=== PATIENT | female | born 1960 | race Caucasian/White ===

== ENCOUNTER 2017-09-10 15:44 | Inpatient (IN) | payer MEDICAID ==
[~2017-09-10] VITALS: Ht 162.6 cm; Wt 71.0 kg
--- NOTE | ~2017-09-10 | OP ---
PATIENT NAME: SAVANNA CALIX MEDICAL RECORD: [id number] :56 LOCATION:D.[facility] ADMISSION DATE:09/10/17 SURGEON: LEATHA LYONS MD DATE OF OPERATION: 09/17/2017 PREOPERATIVE DIAGNOSIS: Gangrenous nonviable, right foot. POSTOPERATIVE DIAGNOSES: Gangrenous nonviable, right foot plus abscess of the entire posterior compartment with necrosis of deep gastroc. PROCEDURES: 1. Open right BKA. 2. Excisional debridement of posterior compartment to include skin, subcutaneous tissue, portions of fat, fascia, and muscle, 60 cm in total. 3. Application of wound VAC. SURGEON: Leatha Lyons MD ANESTHESIA: General. INTRAOPERATIVE COMPLICATIONS: None. SUMMARY OF PATHOLOGIC FINDINGS: As listed in the preoperative diagnosis, the patient had a known pyogenic gangrenous right foot and she had become more septic and the decision was made to proceed with a below-knee amputation. Unfortunately at the time of the below-knee amputation, it was found that the entire posterior compartment was also filled with pus, requiring the above surgery. OPERATIVE SUMMARY IN DETAIL: After obtaining the appropriate preoperative orthopedic surgery consent as well as anesthetic consultation, evaluation and clearance, the patient was brought to the operating room and placed in a supine position. After general laryngeal mask was administered, tourniquet was placed about the proximal aspect of the right lower extremity. Right lower extremity was then prepped and draped in a routine sterile fashion leaving the entire portion of the foot below the malleoli completely covered. The leg was elevated. Tourniquet was inflated to 350 mmHg, it was not exsanguinated. Planned incision was made. Dissection was carried down to the anterior aspect of the periosteum of the tibia and also down to the fibula. The flaps posteriorly was made with little degree of difficulty and upon incising into the posterior compartment to the transverse interosseous ligament, copious purulence began to exude forth and cultures were taken at this time. Amputation was completed. An examination was made at the infection track to behind the knee to the insertion of the gastrocsoleus-nemius complex. Copious pulsatile lavage irrigation was then carried out along with a scalpel, curettage, and rongeur debridement. When it was felt that all nonviable tissue was cleared, Bovie was taken and checked the superficial flap of the gastroc, which still viable, although it had a grayish hue. At this point, a wound VAC one of the black sponge was placed up the canal of the gastroc that had completely dissolved and another one was placed across the face of the BKA. This was sewn in with 0 Prolene. Wound VAC was then attached to 125 mmHg with continuous suction at a medium intensity. The patient was awakened, taken to recovery room in stable condition. All final needle and sponge counts were correct. TRANSINT:[id number] Voice Confirmation ID: [id number] DOCUMENT ID: [id number] OPERATIVE REPORT [id number] SAVANNA CALIX MD, LEATHA MCDONOUGH at 0826 CC: [id number] DICTATION DATE: 09/19/17 1052 DE ICER: 09/19/17 1413 ADM IN [facility] [address] [place] [address]
--- NOTE | ~2017-09-10 | OP ---
PATIENT NAME: SAVANNA CALIX MEDICAL RECORD: [id number] :56 LOCATION:D.[facility] ADMISSION DATE:09/10/17 SURGEON: LEATHA LYONS MD DATE OF OPERATION: 09/13/2017 PREOPERATIVE DIAGNOSIS: Osteomyelitis of the right foot and ankle. POSTOPERATIVE DIAGNOSIS: Osteomyelitis of the right foot and ankle. PROCEDURES: Excisional debridement of the right foot to include skin, subcutaneous tissue, portions of fat, fascia, muscle and bone, 80 cm in total. SURGEON: Leatha Lyons MD. ANESTHESIA: General. INTRAOPERATIVE COMPLICATIONS: None. SUMMARY OF PATHOLOGIC FINDINGS: Unfortunately, the patient had asked to try to save her lower extremity at the time of the surgery; however, she was found to have a very large plantar abscess with tracts going more proximally. BKA was not done at this point; however, the bulk of the infection was debrided. OPERATIVE SUMMARY IN DETAIL: After obtaining the appropriate preoperative orthopedic surgery consult as well as anesthetic consultation, evaluation and clearance, the patient was brought to the operating room and placed on the operating table in supine position. After adequate general laryngeal mask airway was administered, tourniquet was placed on the proximal aspect of the right lower extremity. Note, it was not used during this case. Right lower extremity was prepped and draped in a routine sterile fashion. A combination of scalpel curettage as well as rongeur debridement was utilized along the border of what appeared to be the area of osteomyelitic concern; however, upon incising around this area ,a large plantar abscess was noted that tracked to the calcaneus and into the calcaneus. This required further curettage and removal of more of the calcaneus. At this point, copious bulb syringe was then followed by packing of this wound and sterile dressings were applied. The patient was awakened and taken to recovery room in stable condition. Plan is to immediately postoperatively talk to the patient and the family when she is awake about the need for BKA. TRANSINT:[id number] Voice Confirmation ID: [id number] DOCUMENT ID: [id number] LEATHA LYONS MD at 0444 CC: [id number] DICTATION DATE: 11/19/17 1042 GLOST KILN PLACER: 11/19/17 1253 DIS IN 09/29/17 [facility] [address] [place] [address]
--- NOTE | ~2017-09-10 | OP ---
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 PROCEDURE: Repeat excisional debridement of infected BKA stump with wound VAC application. SURGEON: Leatha Lyons MD ANESTHESIA: General. INTRAOPERATIVE COMPLICATIONS: None. SUMMARY OF PATHOLOGIC FINDINGS: The patient was indeed found to have improvement of the infected cavity posterior to her knee and in the entire deep posterior compartment. OPERATIVE SUMMARY IN DETAIL: After obtaining the appropriate preoperative orthopedic surgery consent as well as anesthetic consultation, evaluation, and clearance, the patient was brought to the operating room and placed on the operating table in supine position. After general laryngeal mask was administered, the patient's right BKA stump was prepped and draped in a routine sterile fashion. The previously sewn in wound VAC was removed and pulsatile lavage irrigation was followed by rongeur, scalpel and curettage debridement of all nonviable-appearing tissue. One small residual area of abscess was discovered at this time, it was also completely debrided. Please note that in aggregate this was approximately 80 square cm. After appropriate excisional debridement and irrigation had been finished, wound VAC was replaced and sewn in as prior. The wound VAC was placed at 125 mmHg with continuous suction on medium intensity. The patient was awakened and taken to recovery room in stable condition. All final needle, instrument and sponge counts were correct. TRANSINT:[id number] Voice Confirmation ID: [id number] DOCUMENT ID: [id number] LEATHA LYONS MD at 0826 CC: [id number] DICTATION DATE: 09/19/17 1122 PC ANALYST: 09/19/17 1618 ADM IN [facility] [id number] [place] [address]
--- NOTE | ~2017-09-10 | OP ---
PATIENT NAME: SAVANNA CALIX MEDICAL RECORD: [id number] :56 LOCATION:D.[facility] ADMISSION DATE:09/10/17 SURGEON: LEATHA LYONS MD DATE OF OPERATION: 09/25/2017 PREOPERATIVE DIAGNOSIS: Infected below the knee amputation. POSTOPERATIVE DIAGNOSIS: Infected below the knee amputation. PROCEDURE: I&D of below-knee amputation with terminal closure. SURGEON: Leatha Lyons MD ANESTHESIA: General. INTRAOPERATIVE COMPLICATIONS: None. SUMMARY OF PATHOLOGIC FINDINGS: The wound today looked as good it ever has without evidence of continued infection and viable tissue while it is still not as optimal for BKA. It is hopefully going to heal, so that she can have a better chance in ambulation. OPERATIVE SUMMARY IN DETAIL: After obtaining the appropriate preoperative orthopedic surgery consent as well as anesthetic consultation, evaluation and clearance, the patient was brought to the operating room and placed on the operating table in supine position. After general laryngeal mask was administered, the patient's right lower extremity was prepped and draped in routine sterile fashion. Previously placed wound VAC sponge and deep was removed. All sutures were removed and copious pulsatile lavage irrigation was carried out along with a curettage, rongeur, and scalpel, debridement of any nonviable-appearing tissue, which was very little. The posterior flap was closed, the anterior flap using #1 Vicryl followed by 2-0 Vicryl and skin jeffy. Sterile dressings were applied. The patient was awakened, taken to recovery room in stable condition. All final needle and sponge counts were correct. TRANSINT:[id number] Voice Confirmation ID: [id number] DOCUMENT ID: [id number] LEATHA LYONS MD at 1026 CC: [id number] DICTATION DATE: 09/25/17 1051 SUPERVISOR MODEL MAKING: 09/25/17 1105 ADM IN [facility] [id number] [place] [address]
[2017-09-10] MEDS ORDERED: TRIGLIDE160 MG PO (16:36)
[2017-09-10] MEDS ORDERED: LEVEMIR100 U/M1 SC (16:36)
[2017-09-10] MEDS ORDERED: ENULOSE10 G/15 ML PO (16:37)
[2017-09-10] MEDS ORDERED: MIRALAX17 GM PO (16:38)
[2017-09-10] MEDS ORDERED: ALEVE220 MG PO (16:38)
[2017-09-10 18:18] LABS: HEMATOCRIT 30.1 % (36.0-48.0); HEMOGLOBIN 10.3 g/dL (12-16); MCH 29.3 pg (26.0-34.0); MCHC 34.2 g/dL (31.0-37.0); MCV 85.5 fL (80.0-100.0); PLATELET COUNT 493 10x3/uL (130-400); RBC 3.52 10x6/uL (4.00-5.40); RDW 12.3 % (11.5-14.5); WBC 42.1 10x3/uL (4.8-10.8)
[2017-09-10 18:33] LABS: ALBUMIN 1.4 g/dL (3.4-5.0); ALKALINE PHOSPHATASE 362 U/L (46-116); ALT (SGPT) 15 U/L (10-68); BILIRUBIN - TOTAL 0.24 mg/dL (0.2-1.3); CALC OSMOLALITY 271 mosm/kg (275-300); CALCIUM 8.9 mg/dL (8.5-10.1); CARBON DIOXIDE 27.7 mmol/L (21.0-32.0); CHLORIDE - SERUM 99 mmol/L (98-107); CREATININE - SERUM 0.6 mg/dL (0.6-1.3); GLUCOSE 190 mg/dL (74-106); MAGNESIUM - SERUM 1.2 mg/dL (1.8-2.4); PHOSPHOROUS 2.6 mg/dL (2.5-4.9); POTASSIUM - SERUM 3.8 mmol/L (3.5-5.1); PROTEIN - SERUM 5.5 g/dL (6.4-8.2); SODIUM 134 mmol/L (136-145); UREA NITROGEN 11 mg/dL (7-18); eGFR NON AFRICAN AMERICAN > 90 mL/min (90-120)
[2017-09-10 19:01] LABS: EOSINOPHILS 1 % (0-7); LYMPHOCYTES 11 % (15-50); MONOCYTES 2 % (2-11); NEUTROPHILS 86 % (40-80); PLATELET ESTIMATE NORMAL
[2017-09-11 00:14] VITALS: BP 141/70; BP 148/72
[2017-09-11 05:31] LABS: BASOPHILS 0.1 % (0-2); EOSINOPHILS 0.1 % (0-7); HEMATOCRIT 28.8 % (36.0-48.0); HEMOGLOBIN 9.6 g/dL (12-16); IMMATURE GRANULOCYTES 1.1 % (0-5); LYMPHOCYTES 7.5 % (15-50); MCH 28.6 pg (26.0-34.0); MCHC 33.3 g/dL (31.0-37.0); MCV 85.7 fL (80.0-100.0); MEAN PLATELET VOLUME 9.2 fL (7.4-10.4); MONOCYTES 6.7 % (2-11); NEUTROPHILS 84.5 % (40-80); PLATELET COUNT 507 10x3/uL (130-400); RBC 3.36 10x6/uL (4.00-5.40); RDW 12.3 % (11.5-14.5); WBC 38.2 10x3/uL (4.8-10.8)
[2017-09-11 05:32] LABS: ALBUMIN 1.2 g/dL (3.4-5.0); ALKALINE PHOSPHATASE 309 U/L (46-116); ALT (SGPT) 12 U/L (10-68); CALC OSMOLALITY 270 mosm/kg (275-300); CALCIUM 8.5 mg/dL (8.5-10.1); CARBON DIOXIDE 26.5 mmol/L (21.0-32.0); CHLORIDE - SERUM 100 mmol/L (98-107); CREATININE - SERUM 0.6 mg/dL (0.6-1.3); GLUCOSE 212 mg/dL (74-106); MAGNESIUM - SERUM 1.3 mg/dL (1.8-2.4); PHOSPHOROUS 2.8 mg/dL (2.5-4.9); POTASSIUM - SERUM 3.6 mmol/L (3.5-5.1); PROTEIN - SERUM 5.9 g/dL (6.4-8.2); SODIUM 133 mmol/L (136-145); UREA NITROGEN 11 mg/dL (7-18); eGFR NON AFRICAN AMERICAN > 90 mL/min (90-120)
[2017-09-11 06:33] VITALS: BP 116/56
[2017-09-11 08:54] VITALS: BP 146/52
[2017-09-11 15:36] VITALS: BMI 21.8
[2017-09-11 16:00] VITALS: BP 142/68
[2017-09-11 22:10] VITALS: BP 137/67
[2017-09-12 01:01] VITALS: BP 146/65
[2017-09-12 05:39] VITALS: BP 144/63
[2017-09-12 06:16] LABS: BASOPHILS 0.1 % (0-2); EOSINOPHILS 0.2 % (0-7); HEMATOCRIT 30.4 % (36.0-48.0); HEMOGLOBIN 10.2 g/dL (12-16); IMMATURE GRANULOCYTES 1.5 % (0-5); LYMPHOCYTES 8.3 % (15-50); MCHC 33.6 g/dL (31.0-37.0); MCV 86.4 fL (80.0-100.0); MEAN PLATELET VOLUME 9.1 fL (7.4-10.4); MONOCYTES 7.1 % (2-11); NEUTROPHILS 82.8 % (40-80); PLATELET COUNT 572 10x3/uL (130-400); RBC 3.52 10x6/uL (4.00-5.40); RDW 12.5 % (11.5-14.5); WBC 36.4 10x3/uL (4.8-10.8)
[2017-09-12 06:33] LABS: ALBUMIN 1.2 g/dL (3.4-5.0); ALKALINE PHOSPHATASE 347 U/L (46-116); ALT (SGPT) 11 U/L (10-68); CALC OSMOLALITY 273 mosm/kg (275-300); CALCIUM 9.2 mg/dL (8.5-10.1); CARBON DIOXIDE 27.1 mmol/L (21.0-32.0); CHLORIDE - SERUM 101 mmol/L (98-107); CREATININE - SERUM 0.6 mg/dL (0.6-1.3); GLUCOSE 155 mg/dL (74-106); POTASSIUM - SERUM 3.4 mmol/L (3.5-5.1); PROTEIN - SERUM 6.2 g/dL (6.4-8.2); SODIUM 136 mmol/L (136-145); UREA NITROGEN 9 mg/dL (7-18); eGFR NON AFRICAN AMERICAN > 90 mL/min (90-120)
[2017-09-12 10:00] VITALS: BP 142/63
[2017-09-12 11:48] VITALS: BP 136/64
[2017-09-12 16:01] VITALS: BP 125/62
[2017-09-12 21:55] VITALS: BP 106/66
[2017-09-13 00:40] VITALS: BP 144/72
[2017-09-13 04:50] VITALS: BP 147/60
[2017-09-13 05:02] LABS: BASOPHILS 0.1 % (0-2); EOSINOPHILS 0.3 % (0-7); HEMATOCRIT 30.8 % (36.0-48.0); HEMOGLOBIN 10.1 g/dL (12-16); IMMATURE GRANULOCYTES 1.7 % (0-5); LYMPHOCYTES 7.9 % (15-50); MCH 28.4 pg (26.0-34.0); MCHC 32.8 g/dL (31.0-37.0); MCV 86.5 fL (80.0-100.0); MEAN PLATELET VOLUME 8.9 fL (7.4-10.4); PLATELET COUNT 619 10x3/uL (130-400); RBC 3.56 10x6/uL (4.00-5.40); RDW 12.4 % (11.5-14.5); WBC 33.8 10x3/uL (4.8-10.8)
[2017-09-13 05:17] LABS: ALBUMIN 1.2 g/dL (3.4-5.0); ALKALINE PHOSPHATASE 328 U/L (46-116); ALT (SGPT) 12 U/L (10-68); BILIRUBIN - TOTAL 0.47 mg/dL (0.2-1.3); CALC OSMOLALITY 270 mosm/kg (275-300); CALCIUM 9.3 mg/dL (8.5-10.1); CARBON DIOXIDE 27.7 mmol/L (21.0-32.0); CHLORIDE - SERUM 100 mmol/L (98-107); CREATININE - SERUM 0.7 mg/dL (0.6-1.3); GLUCOSE 135 mg/dL (74-106); POTASSIUM - SERUM 4.2 mmol/L (3.5-5.1); PROTEIN - SERUM 6.4 g/dL (6.4-8.2); SODIUM 135 mmol/L (136-145); UREA NITROGEN 9 mg/dL (7-18); eGFR NON AFRICAN AMERICAN > 90 mL/min (90-120)
[2017-09-13 08:14] VITALS: BP 156/66
[2017-09-13 11:22] VITALS: BP 150/75
[2017-09-13 17:38] VITALS: BP 135/66
[2017-09-13 20:00] VITALS: BP 135/57
[2017-09-14 04:00] VITALS: BP 128/62
[2017-09-14 05:31] LABS: BASOPHILS 0.1 % (0-2); EOSINOPHILS 0.2 % (0-7); HEMATOCRIT 29.9 % (36.0-48.0); HEMOGLOBIN 9.9 g/dL (12-16); IMMATURE GRANULOCYTES 1.4 % (0-5); LYMPHOCYTES 5.8 % (15-50); MCH 28.6 pg (26.0-34.0); MCHC 33.1 g/dL (31.0-37.0); MCV 86.4 fL (80.0-100.0); MEAN PLATELET VOLUME 8.8 fL (7.4-10.4); MONOCYTES 6.3 % (2-11); NEUTROPHILS 86.2 % (40-80); PLATELET COUNT 680 10x3/uL (130-400); RBC 3.46 10x6/uL (4.00-5.40); RDW 12.5 % (11.5-14.5); WBC 38.8 10x3/uL (4.8-10.8)
[2017-09-14 05:47] LABS: ALBUMIN 1.3 g/dL (3.4-5.0); ALKALINE PHOSPHATASE 266 U/L (46-116); ALT (SGPT) 10 U/L (10-68); CALC OSMOLALITY 270 mosm/kg (275-300); CALCIUM 8.9 mg/dL (8.5-10.1); CARBON DIOXIDE 29.1 mmol/L (21.0-32.0); CHLORIDE - SERUM 98 mmol/L (98-107); CREATININE - SERUM 0.7 mg/dL (0.6-1.3); GLUCOSE 133 mg/dL (74-106); PROTEIN - SERUM 6.4 g/dL (6.4-8.2); SODIUM 135 mmol/L (136-145); UREA NITROGEN 9 mg/dL (7-18); eGFR NON AFRICAN AMERICAN > 90 mL/min (90-120)
[2017-09-14 08:15] VITALS: BP 141/64
[2017-09-14 11:59] VITALS: BP 147/78
[2017-09-14 14:51] VITALS: Ht 162.6 cm; Wt 71.0 kg
[2017-09-14 15:48] VITALS: BP 148/66
[2017-09-14 20:00] VITALS: BP 140/59
[2017-09-15 04:00] VITALS: BP 136/78
[2017-09-15 04:46] LABS: BASOPHILS 0.1 % (0-2); EOSINOPHILS 0.2 % (0-7); HEMATOCRIT 27.6 % (36.0-48.0); HEMOGLOBIN 9.2 g/dL (12-16); IMMATURE GRANULOCYTES 1.1 % (0-5); LYMPHOCYTES 6.2 % (15-50); MCH 28.4 pg (26.0-34.0); MCHC 33.3 g/dL (31.0-37.0); MCV 85.2 fL (80.0-100.0); MEAN PLATELET VOLUME 8.7 fL (7.4-10.4); MONOCYTES 6.4 % (2-11); PLATELET COUNT 666 10x3/uL (130-400); RBC 3.24 10x6/uL (4.00-5.40); RDW 12.5 % (11.5-14.5); WBC 39.2 10x3/uL (4.8-10.8)
[2017-09-15 04:56] LABS: ALBUMIN 1.1 g/dL (3.4-5.0); ALKALINE PHOSPHATASE 214 U/L (46-116); ALT (SGPT) 9 U/L (10-68); CALC OSMOLALITY 274 mosm/kg (275-300); CALCIUM 8.4 mg/dL (8.5-10.1); CARBON DIOXIDE 29.4 mmol/L (21.0-32.0); CHLORIDE - SERUM 100 mmol/L (98-107); CREATININE - SERUM 0.6 mg/dL (0.6-1.3); GLUCOSE 168 mg/dL (74-106); POTASSIUM - SERUM 3.5 mmol/L (3.5-5.1); SODIUM 136 mmol/L (136-145); UREA NITROGEN 10 mg/dL (7-18); eGFR NON AFRICAN AMERICAN > 90 mL/min (90-120)
[2017-09-15 08:02] VITALS: BP 151/58
[2017-09-15 12:50] VITALS: BP 108/76
[2017-09-15 16:17] VITALS: BP 118/42
[2017-09-15 20:00] VITALS: BP 150/61
[2017-09-16] VITALS: BP 143/59
[2017-09-16 04:00] VITALS: BP 163/70
[2017-09-16 06:07] LABS: BASOPHILS 0.1 % (0-2); EOSINOPHILS 0.2 % (0-7); HEMATOCRIT 29.3 % (36.0-48.0); HEMOGLOBIN 9.8 g/dL (12-16); IMMATURE GRANULOCYTES 1.2 % (0-5); MCH 28.5 pg (26.0-34.0); MCHC 33.4 g/dL (31.0-37.0); MCV 85.2 fL (80.0-100.0); MEAN PLATELET VOLUME 8.6 fL (7.4-10.4); MONOCYTES 4.4 % (2-11); NEUTROPHILS 88.1 % (40-80); PLATELET COUNT 692 10x3/uL (130-400); RBC 3.44 10x6/uL (4.00-5.40); RDW 12.7 % (11.5-14.5); WBC 41.4 10x3/uL (4.8-10.8)
[2017-09-16 06:28] LABS: ALBUMIN 1.2 g/dL (3.4-5.0); ALKALINE PHOSPHATASE 228 U/L (46-116); ALT (SGPT) 12 U/L (10-68); BILIRUBIN - TOTAL 0.31 mg/dL (0.2-1.3); CALC OSMOLALITY 272 mosm/kg (275-300); CALCIUM 8.6 mg/dL (8.5-10.1); CARBON DIOXIDE 28.5 mmol/L (21.0-32.0); CHLORIDE - SERUM 99 mmol/L (98-107); CREATININE - SERUM 0.7 mg/dL (0.6-1.3); GLUCOSE 249 mg/dL (74-106); POTASSIUM - SERUM 3.3 mmol/L (3.5-5.1); PROTEIN - SERUM 6.5 g/dL (6.4-8.2); SODIUM 133 mmol/L (136-145); UREA NITROGEN 10 mg/dL (7-18); eGFR NON AFRICAN AMERICAN > 90 mL/min (90-120)
[2017-09-16 07:58] VITALS: BP 136/64
[2017-09-16 12:23] VITALS: BP 154/68
[2017-09-16 15:55] VITALS: BP 147/66
[2017-09-16 20:00] VITALS: BP 136/58
[2017-09-17] VITALS (13 sets, daily range): BP systolic 111–184; BP diastolic 57–87
[2017-09-17 03:50] LABS: CREATININE - URINE 39.6 mg/dL (30-125); PROTEIN - URINE 85.5 mg/dL (0.0-11.9)
[2017-09-18] VITALS: BP 146/82
[2017-09-18 04:00] VITALS: BP 146/69
[2017-09-18 08:07] VITALS: BP 158/75
[2017-09-18 12:15] VITALS: BP 148/69
[2017-09-18 16:24] VITALS: BP 145/69
[2017-09-18 20:00] VITALS: BP 156/71
[2017-09-19] VITALS (14 sets, daily range): BP systolic 122–164; BP diastolic 56–86
[2017-09-19 06:26] LABS: BASOPHILS 0 % (0-2); EOSINOPHILS 1.1 % (0-7); HEMATOCRIT 26.5 % (36.0-48.0); HEMOGLOBIN 8.6 g/dL (12-16); IMMATURE GRANULOCYTES 1.2 % (0-5); LYMPHOCYTES 12.8 % (15-50); MCH 27.7 pg (26.0-34.0); MCHC 32.5 g/dL (31.0-37.0); MCV 85.5 fL (80.0-100.0); MEAN PLATELET VOLUME 8.6 fL (7.4-10.4); NEUTROPHILS 79.9 % (40-80); PLATELET COUNT 717 10x3/uL (130-400); RDW 12.8 % (11.5-14.5); WBC 23.5 10x3/uL (4.8-10.8)
[2017-09-19 06:33] LABS: CALC OSMOLALITY 269 mosm/kg (275-300); CALCIUM 8.8 mg/dL (8.5-10.1); CARBON DIOXIDE 26.2 mmol/L (21.0-32.0); CHLORIDE - SERUM 99 mmol/L (98-107); CREATININE - SERUM 0.8 mg/dL (0.6-1.3); GLUCOSE 202 mg/dL (74-106); POTASSIUM - SERUM 4.3 mmol/L (3.5-5.1); SODIUM 132 mmol/L (136-145); UREA NITROGEN 10 mg/dL (7-18); eGFR NON AFRICAN AMERICAN 78 mL/min (90-120)
[2017-09-20 00:50] VITALS: BP 164/74
[2017-09-20 05:43] VITALS: BP 154/74
[2017-09-20 06:22] LABS: HEMATOCRIT 24.6 % (36.0-48.0); MCH 27.8 pg (26.0-34.0); MCHC 32.5 g/dL (31.0-37.0); MCV 85.4 fL (80.0-100.0); MEAN PLATELET VOLUME 8.6 fL (7.4-10.4); RBC 2.88 10x6/uL (4.00-5.40); WBC 21.1 10x3/uL (4.8-10.8)
[2017-09-20 06:34] LABS: CALC OSMOLALITY 271 mosm/kg (275-300); CALCIUM 8.6 mg/dL (8.5-10.1); CARBON DIOXIDE 25.5 mmol/L (21.0-32.0); CHLORIDE - SERUM 101 mmol/L (98-107); CREATININE - SERUM 0.6 mg/dL (0.6-1.3); GLUCOSE 245 mg/dL (74-106); POTASSIUM - SERUM 4.2 mmol/L (3.5-5.1); SODIUM 132 mmol/L (136-145); UREA NITROGEN 9 mg/dL (7-18); eGFR NON AFRICAN AMERICAN > 90 mL/min (90-120)
[2017-09-20 09:59] VITALS: BP 154/77
[2017-09-20 11:55] VITALS: BP 160/72
[2017-09-20 20:00] VITALS: BP 172/86
[2017-09-21 04:00] VITALS: BP 160/78
[2017-09-21 06:23] LABS: ALBUMIN 1.3 g/dL (3.4-5.0); ALKALINE PHOSPHATASE 185 U/L (46-116); ALT (SGPT) 15 U/L (10-68); CALC OSMOLALITY 275 mosm/kg (275-300); CALCIUM 8.7 mg/dL (8.5-10.1); CARBON DIOXIDE 25.4 mmol/L (21.0-32.0); CHLORIDE - SERUM 101 mmol/L (98-107); CREATININE - SERUM 0.6 mg/dL (0.6-1.3); GLUCOSE 205 mg/dL (74-106); POTASSIUM - SERUM 4.2 mmol/L (3.5-5.1); PROTEIN - SERUM 6.5 g/dL (6.4-8.2); SODIUM 135 mmol/L (136-145); UREA NITROGEN 13 mg/dL (7-18); eGFR NON AFRICAN AMERICAN > 90 mL/min (90-120)
[2017-09-21 06:34] LABS: BASOPHILS 0.1 % (0-2); EOSINOPHILS 1.1 % (0-7); HEMATOCRIT 33.1 % (36.0-48.0); HEMOGLOBIN 11.2 g/dL (12-16); IMMATURE GRANULOCYTES 0.8 % (0-5); LYMPHOCYTES 14.9 % (15-50); MCH 28.8 pg (26.0-34.0); MCHC 33.8 g/dL (31.0-37.0); MCV 85.1 fL (80.0-100.0); MEAN PLATELET VOLUME 8.7 fL (7.4-10.4); MONOCYTES 5.2 % (2-11); NEUTROPHILS 77.9 % (40-80); PLATELET COUNT 667 10x3/uL (130-400); RBC 3.89 10x6/uL (4.00-5.40); RDW 13.4 % (11.5-14.5); WBC 20.4 10x3/uL (4.8-10.8)
[2017-09-21 08:32] VITALS: BP 153/82
[2017-09-21 13:25] VITALS: BP 152/84
[2017-09-21 13:41] VITALS: BP 153/84
[2017-09-21 16:32] VITALS: BP 147/76
[2017-09-21 20:00] VITALS: BP 138/61
[2017-09-22] VITALS: BP 151/74
[2017-09-22 04:00] VITALS: BP 158/73
[2017-09-22 04:30] LABS: BASOPHILS 0.1 % (0-2); EOSINOPHILS 1.9 % (0-7); HEMATOCRIT 32.6 % (36.0-48.0); HEMOGLOBIN 10.9 g/dL (12-16); LYMPHOCYTES 20.1 % (15-50); MCH 28.9 pg (26.0-34.0); MCHC 33.4 g/dL (31.0-37.0); MCV 86.5 fL (80.0-100.0); MEAN PLATELET VOLUME 8.5 fL (7.4-10.4); MONOCYTES 6.5 % (2-11); NEUTROPHILS 70.4 % (40-80); PLATELET COUNT 706 10x3/uL (130-400); RBC 3.77 10x6/uL (4.00-5.40); RDW 13.5 % (11.5-14.5); WBC 17.7 10x3/uL (4.8-10.8)
[2017-09-22 05:03] LABS: ALBUMIN 1.3 g/dL (3.4-5.0); ALKALINE PHOSPHATASE 183 U/L (46-116); ALT (SGPT) 12 U/L (10-68); BILIRUBIN - TOTAL 0.33 mg/dL (0.2-1.3); CALC OSMOLALITY 275 mosm/kg (275-300); CALCIUM 8.9 mg/dL (8.5-10.1); CARBON DIOXIDE 26.6 mmol/L (21.0-32.0); CHLORIDE - SERUM 101 mmol/L (98-107); CREATININE - SERUM 0.7 mg/dL (0.6-1.3); GLUCOSE 216 mg/dL (74-106); POTASSIUM - SERUM 4.5 mmol/L (3.5-5.1); PROTEIN - SERUM 6.5 g/dL (6.4-8.2); SODIUM 134 mmol/L (136-145); UREA NITROGEN 16 mg/dL (7-18); eGFR NON AFRICAN AMERICAN > 90 mL/min (90-120)
[2017-09-22 08:03] VITALS: BP 152/79
[2017-09-22 11:56] VITALS: BP 152/71
[2017-09-22 17:02] VITALS: BP 137/60
[2017-09-22 20:00] VITALS: BP 141/62
[2017-09-23] VITALS: BP 138/62
[2017-09-23 04:00] VITALS: BP 164/72
[2017-09-23 04:10] LABS: BASOPHILS 0.1 % (0-2); EOSINOPHILS 1.5 % (0-7); HEMATOCRIT 31.7 % (36.0-48.0); HEMOGLOBIN 10.5 g/dL (12-16); IMMATURE GRANULOCYTES 0.9 % (0-5); LYMPHOCYTES 24.2 % (15-50); MCH 28.9 pg (26.0-34.0); MCHC 33.1 g/dL (31.0-37.0); MCV 87.3 fL (80.0-100.0); MEAN PLATELET VOLUME 8.4 fL (7.4-10.4); MONOCYTES 6.5 % (2-11); NEUTROPHILS 66.8 % (40-80); PLATELET COUNT 696 10x3/uL (130-400); RBC 3.63 10x6/uL (4.00-5.40); RDW 13.5 % (11.5-14.5); WBC 14.9 10x3/uL (4.8-10.8)
[2017-09-23 04:24] LABS: ALBUMIN 1.4 g/dL (3.4-5.0); ALKALINE PHOSPHATASE 167 U/L (46-116); ALT (SGPT) 11 U/L (10-68); BILIRUBIN - TOTAL 0.19 mg/dL (0.2-1.3); CALC OSMOLALITY 278 mosm/kg (275-300); CALCIUM 9.1 mg/dL (8.5-10.1); CARBON DIOXIDE 26.3 mmol/L (21.0-32.0); CHLORIDE - SERUM 102 mmol/L (98-107); CREATININE - SERUM 0.8 mg/dL (0.6-1.3); GLUCOSE 220 mg/dL (74-106); POTASSIUM - SERUM 4.5 mmol/L (3.5-5.1); PROTEIN - SERUM 6.4 g/dL (6.4-8.2); SODIUM 135 mmol/L (136-145); UREA NITROGEN 18 mg/dL (7-18); eGFR NON AFRICAN AMERICAN 78 mL/min (90-120)
[2017-09-23 09:20] VITALS: BP 142/55
[2017-09-23 13:17] VITALS: BP 148/56
[2017-09-23 17:38] VITALS: BP 148/62
[2017-09-23 20:00] VITALS: BP 167/83
[2017-09-24] VITALS: BP 155/71
[2017-09-24 04:00] VITALS: BP 166/82
[2017-09-24 06:50] LABS: BASOPHILS 0.2 % (0-2); EOSINOPHILS 2.1 % (0-7); HEMATOCRIT 34.8 % (36.0-48.0); HEMOGLOBIN 11.5 g/dL (12-16); IMMATURE GRANULOCYTES 1.2 % (0-5); LYMPHOCYTES 18.8 % (15-50); MCV 87.7 fL (80.0-100.0); MEAN PLATELET VOLUME 8.6 fL (7.4-10.4); NEUTROPHILS 71.7 % (40-80); PLATELET COUNT 817 10x3/uL (130-400); RBC 3.97 10x6/uL (4.00-5.40); RDW 13.5 % (11.5-14.5); WBC 16.9 10x3/uL (4.8-10.8)
[2017-09-24 07:18] LABS: ALBUMIN 1.6 g/dL (3.4-5.0); ALKALINE PHOSPHATASE 154 U/L (46-116); CALC OSMOLALITY 279 mosm/kg (275-300); CALCIUM 8.8 mg/dL (8.5-10.1); CHLORIDE - SERUM 101 mmol/L (98-107); CREATININE - SERUM 0.8 mg/dL (0.6-1.3); GLUCOSE 214 mg/dL (74-106); POTASSIUM - SERUM 4.5 mmol/L (3.5-5.1); SODIUM 136 mmol/L (136-145); UREA NITROGEN 19 mg/dL (7-18); eGFR NON AFRICAN AMERICAN 78 mL/min (90-120)
[2017-09-24 07:20] LABS: ALT (SGPT) 16 U/L (10-68)
[2017-09-24 08:05] VITALS: BP 179/90
[2017-09-24 12:05] VITALS: BP 163/88
[2017-09-24 17:02] VITALS: BP 155/76
[2017-09-24 23:46] VITALS: BP 143/75
[2017-09-25 02:45] VITALS: BP 141/67
[2017-09-25 04:32] VITALS: BP 165/87
[2017-09-25 04:52] LABS: BASOPHILS 0.2 % (0-2); EOSINOPHILS 2.5 % (0-7); IMMATURE GRANULOCYTES 0.8 % (0-5); MCH 29.2 pg (26.0-34.0); MCHC 33.3 g/dL (31.0-37.0); MCV 87.5 fL (80.0-100.0); MEAN PLATELET VOLUME 8.5 fL (7.4-10.4); MONOCYTES 4.6 % (2-11); NEUTROPHILS 65.9 % (40-80); PLATELET COUNT 830 10x3/uL (130-400); RBC 3.77 10x6/uL (4.00-5.40); RDW 13.7 % (11.5-14.5); WBC 14.4 10x3/uL (4.8-10.8)
[2017-09-25 05:17] LABS: ALBUMIN 1.7 g/dL (3.4-5.0); ALKALINE PHOSPHATASE 148 U/L (46-116); ALT (SGPT) 14 U/L (10-68); BILIRUBIN - TOTAL 0.22 mg/dL (0.2-1.3); CALC OSMOLALITY 280 mosm/kg (275-300); CALCIUM 9.6 mg/dL (8.5-10.1); CARBON DIOXIDE 26.6 mmol/L (21.0-32.0); CHLORIDE - SERUM 102 mmol/L (98-107); CREATININE - SERUM 0.7 mg/dL (0.6-1.3); GLUCOSE 192 mg/dL (74-106); POTASSIUM - SERUM 4.5 mmol/L (3.5-5.1); PROTEIN - SERUM 6.9 g/dL (6.4-8.2); SODIUM 136 mmol/L (136-145); eGFR NON AFRICAN AMERICAN > 90 mL/min (90-120)
[2017-09-25 05:19] LABS: UREA NITROGEN 25 mg/dL (7-18)
[2017-09-25 08:20] VITALS: BP 156/80
[2017-09-25 11:23] VITALS: BP 144/66
[2017-09-25 15:18] VITALS: BP 136/67
[2017-09-25 22:58] VITALS: BP 151/74
[2017-09-26 01:21] VITALS: BP 152/68
[2017-09-26 05:44] VITALS: BP 154/64
[2017-09-26 07:22] LABS: BASOPHILS 0.2 % (0-2); EOSINOPHILS 1.9 % (0-7); HEMATOCRIT 34.1 % (36.0-48.0); HEMOGLOBIN 11.3 g/dL (12-16); IMMATURE GRANULOCYTES 0.5 % (0-5); LYMPHOCYTES 21.1 % (15-50); MCHC 33.1 g/dL (31.0-37.0); MCV 87.4 fL (80.0-100.0); MEAN PLATELET VOLUME 8.3 fL (7.4-10.4); MONOCYTES 6.7 % (2-11); NEUTROPHILS 69.6 % (40-80); PLATELET COUNT 859 10x3/uL (130-400); RDW 13.8 % (11.5-14.5); WBC 16.5 10x3/uL (4.8-10.8)
[2017-09-26 07:43] LABS: ALBUMIN 1.9 g/dL (3.4-5.0); ALKALINE PHOSPHATASE 144 U/L (46-116); ALT (SGPT) 16 U/L (10-68); BILIRUBIN - TOTAL 0.23 mg/dL (0.2-1.3); CALC OSMOLALITY 270 mosm/kg (275-300); CARBON DIOXIDE 27.5 mmol/L (21.0-32.0); CHLORIDE - SERUM 102 mmol/L (98-107); CREATININE - SERUM 0.7 mg/dL (0.6-1.3); PROTEIN - SERUM 7.4 g/dL (6.4-8.2); SODIUM 135 mmol/L (136-145); UREA NITROGEN 22 mg/dL (7-18); eGFR NON AFRICAN AMERICAN > 90 mL/min (90-120)
[2017-09-26 07:45] LABS: GLUCOSE 70 mg/dL (74-106)
[2017-09-26 09:00] VITALS: BP 129/66
[2017-09-26 13:13] VITALS: BP 141/70
[2017-09-26 16:58] VITALS: BP 126/68
[2017-09-27 05:06] VITALS: BP 173/78
[2017-09-27 05:17] LABS: BASOPHILS 0.3 % (0-2); EOSINOPHILS 2.3 % (0-7); HEMATOCRIT 33.4 % (36.0-48.0); HEMOGLOBIN 10.7 g/dL (12-16); IMMATURE GRANULOCYTES 0.6 % (0-5); LYMPHOCYTES 21.7 % (15-50); MCH 28.5 pg (26.0-34.0); MCV 89.1 fL (80.0-100.0); MEAN PLATELET VOLUME 8.4 fL (7.4-10.4); NEUTROPHILS 66.1 % (40-80); PLATELET COUNT 924 10x3/uL (130-400); RBC 3.75 10x6/uL (4.00-5.40); RDW 13.8 % (11.5-14.5); WBC 15.8 10x3/uL (4.8-10.8)
[2017-09-27 05:43] LABS: ALBUMIN 1.8 g/dL (3.4-5.0); ALKALINE PHOSPHATASE 133 U/L (46-116); ALT (SGPT) 14 U/L (10-68); CALC OSMOLALITY 273 mosm/kg (275-300); CALCIUM 10.1 mg/dL (8.5-10.1); CARBON DIOXIDE 28.4 mmol/L (21.0-32.0); CHLORIDE - SERUM 101 mmol/L (98-107); CREATININE - SERUM 0.7 mg/dL (0.6-1.3); GLUCOSE 101 mg/dL (74-106); POTASSIUM - SERUM 4.3 mmol/L (3.5-5.1); PROTEIN - SERUM 7.2 g/dL (6.4-8.2); SODIUM 136 mmol/L (136-145); UREA NITROGEN 17 mg/dL (7-18); eGFR NON AFRICAN AMERICAN > 90 mL/min (90-120)
[2017-09-27 08:11] VITALS: BP 150/79; BP 94/67
[2017-09-27 12:21] VITALS: BP 112/61
[2017-09-27 20:38] VITALS: BP 130/77
[2017-09-28 04:30] VITALS: BP 149/78
[2017-09-28 06:39] LABS: BASOPHILS 0.2 % (0-2); EOSINOPHILS 2.2 % (0-7); HEMATOCRIT 33.5 % (36.0-48.0); HEMOGLOBIN 10.8 g/dL (12-16); IMMATURE GRANULOCYTES 0.6 % (0-5); LYMPHOCYTES 23.5 % (15-50); MCH 28.7 pg (26.0-34.0); MCHC 32.2 g/dL (31.0-37.0); MCV 89.1 fL (80.0-100.0); MEAN PLATELET VOLUME 8.6 fL (7.4-10.4); MONOCYTES 10.7 % (2-11); NEUTROPHILS 62.8 % (40-80); PLATELET COUNT 894 10x3/uL (130-400); RBC 3.76 10x6/uL (4.00-5.40); RDW 13.8 % (11.5-14.5); WBC 16.6 10x3/uL (4.8-10.8)
[2017-09-28 07:08] LABS: ALBUMIN 1.9 g/dL (3.4-5.0); ALKALINE PHOSPHATASE 135 U/L (46-116); ALT (SGPT) 16 U/L (10-68); BILIRUBIN - TOTAL 0.27 mg/dL (0.2-1.3); CALCIUM 10.4 mg/dL (8.5-10.1); CHLORIDE - SERUM 102 mmol/L (98-107); CREATININE - SERUM 0.8 mg/dL (0.6-1.3); POTASSIUM - SERUM 3.8 mmol/L (3.5-5.1); PROTEIN - SERUM 7.7 g/dL (6.4-8.2); SODIUM 137 mmol/L (136-145); UREA NITROGEN 21 mg/dL (7-18); eGFR NON AFRICAN AMERICAN 78 mL/min (90-120)
[2017-09-28 07:19] LABS: CALC OSMOLALITY 273 mosm/kg (275-300); CARBON DIOXIDE 26.6 mmol/L (21.0-32.0)
[2017-09-28 07:23] LABS: GLUCOSE 38 mg/dL (74-106)
[2017-09-28 16:03] VITALS: BP 144/57
[2017-09-28 22:18] VITALS: BP 144/69
[2017-09-29 04:29] VITALS: BP 91/63
[2017-09-29 07:42] LABS: BASOPHILS 0.2 % (0-2); HEMATOCRIT 31.3 % (36.0-48.0); IMMATURE GRANULOCYTES 0.3 % (0-5); LYMPHOCYTES 18.7 % (15-50); MCH 28.4 pg (26.0-34.0); MCHC 31.9 g/dL (31.0-37.0); MCV 88.9 fL (80.0-100.0); MEAN PLATELET VOLUME 8.6 fL (7.4-10.4); MONOCYTES 6.3 % (2-11); NEUTROPHILS 73.5 % (40-80); PLATELET COUNT 894 10x3/uL (130-400); RBC 3.52 10x6/uL (4.00-5.40); RDW 13.6 % (11.5-14.5); WBC 14.6 10x3/uL (4.8-10.8)
[2017-09-29 07:58] LABS: ALBUMIN 1.7 g/dL (3.4-5.0); ALKALINE PHOSPHATASE 126 U/L (46-116); ALT (SGPT) 19 U/L (10-68); CALCIUM 9.4 mg/dL (8.5-10.1); CARBON DIOXIDE 27.3 mmol/L (21.0-32.0); CHLORIDE - SERUM 101 mmol/L (98-107); CREATININE - SERUM 0.7 mg/dL (0.6-1.3); PROTEIN - SERUM 7.2 g/dL (6.4-8.2); SODIUM 135 mmol/L (136-145); UREA NITROGEN 24 mg/dL (7-18); eGFR NON AFRICAN AMERICAN > 90 mL/min (90-120)
[2017-09-29 07:59] LABS: CALC OSMOLALITY 280 mosm/kg (275-300); GLUCOSE 220 mg/dL (74-106); POTASSIUM - SERUM 4.9 mmol/L (3.5-5.1)
[2017-09-29] MEDS ORDERED: ELIQUIS2.5 MG PO (08:35)
[2017-09-29] MEDS ORDERED: HYDROCODONE-APA1 TAB PO (08:35)
[2017-09-29] MEDS ORDERED: NICODERM C1 PATCH .1 TRANSDERM (08:35)
[2017-09-29] MEDS ORDERED: LEVAQUIN750 MG PO (08:37)
[2017-09-29 09:16] VITALS: BP 143/69
[2017-09-29 12:38] VITALS: BP 154/75
[2017-09-29 16:10] VITALS: BP 152/78
== END 2017-09-29 16:29 | disposition home health service (06) | DRG 239 ==
LOC: D.MS 15:44
PROVIDERS: Anesthesiology; Emergency Medicine; Family Medicine; Internal Medicine Nephrology; Orthopaedic Surgery
PROC: 0QBL0ZZ Excision of Right Tarsal, Open Approach (ICD-10-PCS; 2017-09-13)
PROC: 0Y6H0Z3 Detachment at Right Lower Leg, Low, Open Approach (ICD-10-PCS; principal; 2017-09-17 09:00)
PROC: 0KBS0ZZ Excision of Right Lower Leg Muscle, Open Approach (ICD-10-PCS; 2017-09-17 09:00)
PROC: 0JBN0ZZ Excision of Right Lower Leg Subcutaneous Tissue and Fascia, Open Approach (ICD-10-PCS; 2017-09-19)
PROC: 0JBN0ZZ Excision of Right Lower Leg Subcutaneous Tissue and Fascia, Open Approach (ICD-10-PCS; 2017-09-25)
DX: E11.52 Type 2 diabetes mellitus with diabetic peripheral angiopathy with gangrene (principal); E43 Unspecified severe protein-calorie malnutrition; L97.418 Non-pressure chronic ulcer of right heel and midfoot with other specified severity; M86.9 Osteomyelitis, unspecified; F17.203 Nicotine dependence unspecified, with withdrawal; L02.611 Cutaneous abscess of right foot; I96 Gangrene, not elsewhere classified; E11.621 Type 2 diabetes mellitus with foot ulcer; E11.69 Type 2 diabetes mellitus with other specified complication; D47.3 Essential (hemorrhagic) thrombocythemia; M60.9 Myositis, unspecified; Z91.14 Patient's other noncompliance with medication regimen; E11.40 Type 2 diabetes mellitus with diabetic neuropathy, unspecified; E11.65 Type 2 diabetes mellitus with hyperglycemia; E78.5 Hyperlipidemia, unspecified; R19.7 Diarrhea, unspecified

== ENCOUNTER → 2017-12-10 17:03 | Outpatient (CLI) | payer MEDICAID ==
[2017-09-14 14:51] VITALS: BMI 21.8
[~2017-12-10 17:03] MED LIST: ALEVE220 MG PO; ELIQUIS2.5 MG PO; ENULOSE10 G/15 ML PO; HYDROCODONE-APA1 TAB PO; LEVAQUIN750 MG PO; LEVEMIR100 U/M1 SC; MIRALAX17 GM PO; NICODERM C1 PATCH .1 TRANSDERM; NOVOLIN 70/30 110 ML SC; PERCOCET 10/3251 TA1 PO; TRIGLIDE160 MG PO
== END | disposition home or self-care (01) ==
LOC: D.LABREF 17:03
DX: Z89.511 Acquired absence of right leg below knee (principal)

== ENCOUNTER 2017-12-24 11:15 | Inpatient (IN) | payer MEDICAID ==
[~2017-12-24] VITALS: Ht 160 cm; Wt 56.7 kg
--- NOTE | ~2017-12-24 | OP ---
PATIENT NAME: SAVANNA CALIX MEDICAL RECORD: [id number] :56 LOCATION:D.[facility] ADMISSION DATE:12/24/17 SURGEON: LEATHA LYONS MD DATE OF OPERATION: 12/27/2017 PREOPERATIVE DIAGNOSIS: Infected right below-knee amputation stump. POSTOPERATIVE DIAGNOSIS: Infected right below-knee amputation stump. PROCEDURE: Revision BKA stump with debridement of skin, subcutaneous tissue, portions of fat, fascia, muscle and bone. SURGEON: Leatha Lyons MD ANESTHESIA: General. INTRAOPERATIVE COMPLICATIONS: None. SUMMARY OF PATHOLOGIC FINDINGS: The patient had a large area of nonhealing necrotic lateral musculature with breakdown of the skin; however, it was clean enough after debridement that I felt like it was amenable to closure and that was done. OPERATIVE SUMMARY IN DETAIL: After obtaining the appropriate preoperative orthopedic surgery consent as well as anesthetic consultation, evaluation and clearance, the patient was brought to the operating room and placed on the operating table in supine position. After general laryngeal mask airway was administered, the tourniquet was placed to the proximal aspect of the right lower extremity. Note, it was not used during this case. Right lower extremity was then prepped and draped in routine sterile fashion. Elliptical incision was done to excise all necrotic appearing tissue, which previously had a stable eschar over it. Dissection was carried down, the distal tibia was immediately seen. At this point, portions of fat, fascia and muscle were taken out. Some 6 saw was then used to take approximately another 3/4 of an inch off the tibia. It was taken in somewhat of a slant form for potential skin closure. At this point, curettage, rongeur and scalpel were used to finish debridement of all soft tissue that appeared to be nonviable. Copious bulbar irrigation was then followed by closure with #1 Vicryl followed by 0 Prolene in vertical mattress fashion. Good reapproximation of the tissues was followed. Excellent bleeding was noted. The patient does have hair on the end of the stump. I do not think this is a vascular issue and I think she will heal this closure. Having completed this, sterile dressings were applied. The patient was awakened and taken to recovery room in stable condition. All final needle and sponge counts were correct. TRANSINT:[id number] Voice Confirmation ID: [id number] DOCUMENT ID: [id number] OPERATIVE REPORT [id number] SAVANNA CALIX MD, LEATHA MCDONOUGH at 1917 CC: [id number] DICTATION DATE: 12/27/17 1331 CLIENT REPORTING ASSOCIATE: 12/27/17 1442 ADM IN [facility] [address] [place] [address]
[~2017-12-24 11:15] MED LIST changes: -NOVOLIN 70/30 110 ML SC; -PERCOCET 10/3251 TA1 PO
[2017-12-24] MEDS ORDERED: NOVOLIN 70/30 110 ML SC (11:41)
[2017-12-24] MEDS ORDERED: PERCOCET 10/3251 TA1 PO (11:42)
[2017-12-24 11:43] VITALS: BP 88/59; BMI 21.5
[2017-12-24 12:08] LABS: CALC OSMOLALITY 288 mosm/kg (275-300); CALCIUM 10.8 mg/dL (8.5-10.1); CARBON DIOXIDE 28.5 mmol/L (21.0-32.0); CHLORIDE - SERUM 101 mmol/L (98-107); CREATININE - SERUM 0.7 mg/dL (0.6-1.3); POTASSIUM - SERUM 5.3 mmol/L (3.5-5.1); SODIUM 137 mmol/L (136-145); UREA NITROGEN 23 mg/dL (7-18); eGFR NON AFRICAN AMERICAN > 90 mL/min (90-120)
[2017-12-24 12:09] LABS: GLUCOSE 288 mg/dL (74-106)
[2017-12-24 12:16] LABS: BASOPHILS 0.2 % (0-2); EOSINOPHILS 5.2 % (0-7); HEMATOCRIT 39.9 % (36.0-48.0); HEMOGLOBIN 13.6 g/dL (12-16); IMMATURE GRANULOCYTES 0.3 % (0-5); LYMPHOCYTES 22.6 % (15-50); MCH 28.5 pg (26.0-34.0); MCHC 34.1 g/dL (31.0-37.0); MCV 83.6 fL (80.0-100.0); MONOCYTES 3.9 % (2-11); NEUTROPHILS 67.8 % (40-80); RBC 4.77 10x6/uL (4.00-5.40); RDW 13.2 % (11.5-14.5); WBC 17.6 10x3/uL (4.8-10.8)
[2017-12-24 12:25] LABS: PLATELET COUNT 541 10x3/uL (130-400)
[2017-12-24 13:00] VITALS: BP 88/50
[2017-12-24 13:58] LABS: ERYTHROCYTE SEDIMENTATION RATE 34 mm/hr (0-30)
[2017-12-24 16:08] VITALS: BP 181/77
[2017-12-24 20:00] VITALS: BP 134/73
[2017-12-25] VITALS: BP 133/76
[2017-12-25 04:00] VITALS: BP 123/87
[2017-12-25 06:05] LABS: BASOPHILS 0.2 % (0-2); EOSINOPHILS 7.7 % (0-7); HEMATOCRIT 39.5 % (36.0-48.0); IMMATURE GRANULOCYTES 0.2 % (0-5); LYMPHOCYTES 39.8 % (15-50); MCH 27.7 pg (26.0-34.0); MCHC 32.9 g/dL (31.0-37.0); MCV 84.2 fL (80.0-100.0); MEAN PLATELET VOLUME 9.1 fL (7.4-10.4); MONOCYTES 5.6 % (2-11); NEUTROPHILS 46.5 % (40-80); PLATELET COUNT 573 10x3/uL (130-400); RBC 4.69 10x6/uL (4.00-5.40); RDW 13.4 % (11.5-14.5); WBC 14.1 10x3/uL (4.8-10.8)
[2017-12-25 06:18] LABS: CALC OSMOLALITY 289 mosm/kg (275-300); CALCIUM 10.8 mg/dL (8.5-10.1); CARBON DIOXIDE 30.7 mmol/L (21.0-32.0); CHLORIDE - SERUM 104 mmol/L (98-107); CREATININE - SERUM 0.6 mg/dL (0.6-1.3); POTASSIUM - SERUM 5.3 mmol/L (3.5-5.1); SODIUM 141 mmol/L (136-145); UREA NITROGEN 23 mg/dL (7-18); eGFR NON AFRICAN AMERICAN > 90 mL/min (90-120)
[2017-12-25 06:21] LABS: GLUCOSE 186 mg/dL (74-106)
[2017-12-25 10:15] VITALS: BP 186/97
[2017-12-25 12:17] VITALS: BP 156/85
[2017-12-25 15:29] LABS: ALBUMIN 2.4 g/dL (3.4-5.0); ALKALINE PHOSPHATASE 138 U/L (46-116); ALT (SGPT) 13 U/L (10-68); BILIRUBIN - TOTAL 0.13 mg/dL (0.2-1.3); CALC OSMOLALITY 287 mosm/kg (275-300); CALCIUM 9.7 mg/dL (8.5-10.1); CARBON DIOXIDE 32.6 mmol/L (21.0-32.0); CHLORIDE - SERUM 102 mmol/L (98-107); GLUCOSE 217 mg/dL (74-106); PROTEIN - SERUM 6.6 g/dL (6.4-8.2); SODIUM 139 mmol/L (136-145); UREA NITROGEN 22 mg/dL (7-18)
[2017-12-25 15:30] LABS: CREATININE - SERUM 0.8 mg/dL (0.6-1.3); POTASSIUM - SERUM 4.2 mmol/L (3.5-5.1); eGFR NON AFRICAN AMERICAN 78 mL/min (90-120)
[2017-12-25 17:06] VITALS: BP 150/85
[2017-12-25 20:49] VITALS: BP 117/72
[2017-12-26 00:52] VITALS: BP 168/98
[2017-12-26 04:17] VITALS: BP 167/76
[2017-12-26 06:57] LABS: BASOPHILS 0.2 % (0-2); EOSINOPHILS 7.2 % (0-7); HEMATOCRIT 38.5 % (36.0-48.0); IMMATURE GRANULOCYTES 0.2 % (0-5); LYMPHOCYTES 24.1 % (15-50); MCH 28.1 pg (26.0-34.0); MCHC 33.8 g/dL (31.0-37.0); MCV 83.2 fL (80.0-100.0); MONOCYTES 4.7 % (2-11); NEUTROPHILS 63.6 % (40-80); PLATELET COUNT 527 10x3/uL (130-400); RBC 4.63 10x6/uL (4.00-5.40); RDW 13.3 % (11.5-14.5); WBC 14.1 10x3/uL (4.8-10.8)
[2017-12-26 07:14] LABS: CALC OSMOLALITY 283 mosm/kg (275-300); CALCIUM 9.8 mg/dL (8.5-10.1); CARBON DIOXIDE 30.5 mmol/L (21.0-32.0); CHLORIDE - SERUM 104 mmol/L (98-107); CREATININE - SERUM 0.6 mg/dL (0.6-1.3); POTASSIUM - SERUM 4.6 mmol/L (3.5-5.1); SODIUM 140 mmol/L (136-145); UREA NITROGEN 21 mg/dL (7-18); eGFR NON AFRICAN AMERICAN > 90 mL/min (90-120)
[2017-12-26 07:15] LABS: GLUCOSE 126 mg/dL (74-106)
[2017-12-26 09:09] VITALS: BP 171/90
[2017-12-26 12:31] VITALS: BP 120/68
[2017-12-26 19:34] VITALS: BP 136/72
[2017-12-27 00:58] VITALS: BP 131/68
[2017-12-27 04:05] VITALS: BP 151/68
[2017-12-27 05:27] LABS: BASOPHILS 0.3 % (0-2); EOSINOPHILS 10.4 % (0-7); HEMATOCRIT 36.2 % (36.0-48.0); IMMATURE GRANULOCYTES 0.2 % (0-5); LYMPHOCYTES 37.1 % (15-50); MCH 27.6 pg (26.0-34.0); MCHC 33.1 g/dL (31.0-37.0); MCV 83.2 fL (80.0-100.0); MONOCYTES 6.6 % (2-11); NEUTROPHILS 45.4 % (40-80); PLATELET COUNT 459 10x3/uL (130-400); RBC 4.35 10x6/uL (4.00-5.40); RDW 13.3 % (11.5-14.5); WBC 12.1 10x3/uL (4.8-10.8)
[2017-12-27 05:37] LABS: CALC OSMOLALITY 278 mosm/kg (275-300); CALCIUM 9.7 mg/dL (8.5-10.1); CARBON DIOXIDE 28.2 mmol/L (21.0-32.0); CHLORIDE - SERUM 106 mmol/L (98-107); CREATININE - SERUM 0.5 mg/dL (0.6-1.3); GLUCOSE 87 mg/dL (74-106); POTASSIUM - SERUM 4.4 mmol/L (3.5-5.1); SODIUM 139 mmol/L (136-145); UREA NITROGEN 19 mg/dL (7-18); eGFR NON AFRICAN AMERICAN > 90 mL/min (90-120)
[2017-12-27 08:25] VITALS: BP 143/76
[2017-12-27 14:46] VITALS: BP 137/67
[2017-12-27 16:55] VITALS: BP 143/77
[2017-12-27 20:00] VITALS: BP 129/69
[2017-12-28 00:18] VITALS: BP 125/85
[2017-12-28 04:10] VITALS: BP 149/57
[2017-12-28 06:18] LABS: BASOPHILS 0.3 % (0-2); EOSINOPHILS 7.2 % (0-7); HEMOGLOBIN 11.4 g/dL (12-16); IMMATURE GRANULOCYTES 0.2 % (0-5); LYMPHOCYTES 23.9 % (15-50); MCH 27.2 pg (26.0-34.0); MCHC 32.6 g/dL (31.0-37.0); MCV 83.5 fL (80.0-100.0); MEAN PLATELET VOLUME 9.1 fL (7.4-10.4); MONOCYTES 6.6 % (2-11); NEUTROPHILS 61.8 % (40-80); PLATELET COUNT 470 10x3/uL (130-400); RBC 4.19 10x6/uL (4.00-5.40); RDW 13.4 % (11.5-14.5); WBC 12.1 10x3/uL (4.8-10.8)
[2017-12-28 06:38] LABS: CALCIUM 9.7 mg/dL (8.5-10.1); CARBON DIOXIDE 28.8 mmol/L (21.0-32.0); CHLORIDE - SERUM 106 mmol/L (98-107); POTASSIUM - SERUM 4.3 mmol/L (3.5-5.1); SODIUM 142 mmol/L (136-145)
[2017-12-28 06:40] LABS: CALC OSMOLALITY 285 mosm/kg (275-300); CREATININE - SERUM 0.7 mg/dL (0.6-1.3); GLUCOSE 159 mg/dL (74-106); UREA NITROGEN 12 mg/dL (7-18); eGFR NON AFRICAN AMERICAN > 90 mL/min (90-120)
[2017-12-28 08:28] VITALS: BP 132/63
[2017-12-28 14:14] VITALS: Ht 160 cm; Wt 56.7 kg
[2017-12-28 15:57] VITALS: BP 127/69
[2017-12-28 18:22] VITALS: BP 143/63
[2017-12-28 20:00] VITALS: BP 182/81
[2017-12-29] VITALS (7 sets, daily range): BP systolic 136–168; BP diastolic 61–89
[2017-12-29 05:48] LABS: BASOPHILS 0.2 % (0-2); EOSINOPHILS 9.7 % (0-7); HEMATOCRIT 32.5 % (36.0-48.0); HEMOGLOBIN 10.8 g/dL (12-16); IMMATURE GRANULOCYTES 0.2 % (0-5); LYMPHOCYTES 30.7 % (15-50); MCH 27.5 pg (26.0-34.0); MCHC 33.2 g/dL (31.0-37.0); MCV 82.7 fL (80.0-100.0); NEUTROPHILS 49.2 % (40-80); PLATELET COUNT 411 10x3/uL (130-400); RBC 3.93 10x6/uL (4.00-5.40); RDW 13.2 % (11.5-14.5); WBC 10.1 10x3/uL (4.8-10.8)
[2017-12-29 06:11] LABS: ALBUMIN 2.1 g/dL (3.4-5.0); ALKALINE PHOSPHATASE 117 U/L (46-116); ALT (SGPT) 12 U/L (10-68); CALC OSMOLALITY 285 mosm/kg (275-300); CALCIUM 9.6 mg/dL (8.5-10.1); CARBON DIOXIDE 30.3 mmol/L (21.0-32.0); CHLORIDE - SERUM 105 mmol/L (98-107); CREATININE - SERUM 0.6 mg/dL (0.6-1.3); GLUCOSE 126 mg/dL (74-106); POTASSIUM - SERUM 4.1 mmol/L (3.5-5.1); PROTEIN - SERUM 6.2 g/dL (6.4-8.2); SODIUM 142 mmol/L (136-145); eGFR NON AFRICAN AMERICAN > 90 mL/min (90-120)
[2017-12-29 06:20] LABS: UREA NITROGEN 16 mg/dL (7-18)
[2017-12-30 03:45] VITALS: BP 157/83
[2017-12-30 05:52] LABS: BASOPHILS 0.2 % (0-2); EOSINOPHILS 9.2 % (0-7); HEMATOCRIT 33.9 % (36.0-48.0); HEMOGLOBIN 11.1 g/dL (12-16); IMMATURE GRANULOCYTES 0.3 % (0-5); LYMPHOCYTES 28.1 % (15-50); MCH 27.3 pg (26.0-34.0); MCHC 32.7 g/dL (31.0-37.0); MCV 83.5 fL (80.0-100.0); MEAN PLATELET VOLUME 9.4 fL (7.4-10.4); MONOCYTES 7.6 % (2-11); NEUTROPHILS 54.6 % (40-80); PLATELET COUNT 432 10x3/uL (130-400); RBC 4.06 10x6/uL (4.00-5.40); RDW 13.5 % (11.5-14.5); WBC 11.4 10x3/uL (4.8-10.8)
[2017-12-30 06:24] LABS: ALKALINE PHOSPHATASE 117 U/L (46-116); ALT (SGPT) 12 U/L (10-68); BILIRUBIN - TOTAL 0.17 mg/dL (0.2-1.3); CALC OSMOLALITY 283 mosm/kg (275-300); CALCIUM 9.8 mg/dL (8.5-10.1); CARBON DIOXIDE 28.6 mmol/L (21.0-32.0); CHLORIDE - SERUM 104 mmol/L (98-107); CREATININE - SERUM 0.6 mg/dL (0.6-1.3); GLUCOSE 151 mg/dL (74-106); POTASSIUM - SERUM 4.3 mmol/L (3.5-5.1); PROTEIN - SERUM 6.3 g/dL (6.4-8.2); SODIUM 139 mmol/L (136-145); eGFR NON AFRICAN AMERICAN > 90 mL/min (90-120)
[2017-12-30 06:25] LABS: UREA NITROGEN 21 mg/dL (7-18)
[2017-12-30 08:52] VITALS: BP 126/61
[2017-12-30 12:22] VITALS: BP 153/82
[2017-12-30 15:51] VITALS: BP 151/63
[2017-12-30 20:00] VITALS: BP 124/61
[2017-12-31 01:20] VITALS: BP 152/82
[2017-12-31 05:21] LABS: BASOPHILS 0.3 % (0-2); HEMATOCRIT 33.4 % (36.0-48.0); IMMATURE GRANULOCYTES 0.3 % (0-5); LYMPHOCYTES 30.5 % (15-50); MCH 27.5 pg (26.0-34.0); MCHC 32.9 g/dL (31.0-37.0); MCV 83.5 fL (80.0-100.0); MEAN PLATELET VOLUME 9.3 fL (7.4-10.4); MONOCYTES 6.8 % (2-11); NEUTROPHILS 54.1 % (40-80); PLATELET COUNT 450 10x3/uL (130-400); RDW 13.5 % (11.5-14.5); WBC 11.9 10x3/uL (4.8-10.8)
[2017-12-31 05:24] LABS: ALBUMIN 2.1 g/dL (3.4-5.0); ALKALINE PHOSPHATASE 116 U/L (46-116); ALT (SGPT) 12 U/L (10-68); BILIRUBIN - TOTAL 0.19 mg/dL (0.2-1.3); C-REACTIVE PROTEIN 0.8 mg/dL (0.0-0.9); CALC OSMOLALITY 281 mosm/kg (275-300); CALCIUM 10.3 mg/dL (8.5-10.1); CARBON DIOXIDE 30.1 mmol/L (21.0-32.0); CHLORIDE - SERUM 105 mmol/L (98-107); CREATININE - SERUM 0.6 mg/dL (0.6-1.3); GLUCOSE 113 mg/dL (74-106); POTASSIUM - SERUM 4.3 mmol/L (3.5-5.1); PROTEIN - SERUM 6.6 g/dL (6.4-8.2); SODIUM 139 mmol/L (136-145); UREA NITROGEN 22 mg/dL (7-18); eGFR NON AFRICAN AMERICAN > 90 mL/min (90-120)
[2017-12-31 05:27] VITALS: BP 150/89
[2017-12-31 05:31] LABS: ERYTHROCYTE SEDIMENTATION RATE 32 mm/hr (0-30)
[2017-12-31] MEDS ORDERED: DOXYCYCLINE HY100 M2 PO (08:20)
[2017-12-31 08:58] VITALS: BP 137/85
== END 2017-12-31 11:27 | disposition home health service (06) | DRG 492 ==
LOC: D.MS 11:15
PROVIDERS: Emergency Medicine; Internal Medicine Nephrology; Orthopaedic Surgery
PROC: 0QBG0ZZ Excision of Right Tibia, Open Approach (ICD-10-PCS; principal; 2017-12-27 16:15)
DX: T87.43 Infection of amputation stump, right lower extremity (principal); E43 Unspecified severe protein-calorie malnutrition; F17.203 Nicotine dependence unspecified, with withdrawal; B95.61 Methicillin susceptible Staphylococcus aureus infection as the cause of diseases classified elsewhere; E11.40 Type 2 diabetes mellitus with diabetic neuropathy, unspecified; Z79.4 Long term (current) use of insulin; I10 Essential (primary) hypertension; D47.3 Essential (hemorrhagic) thrombocythemia; E11.21 Type 2 diabetes mellitus with diabetic nephropathy; E83.52 Hypercalcemia; Z68.21 Body mass index [BMI] 21.0-21.9, adult